=== PATIENT | male | born 1960 | race Caucasian/White ===

== ENCOUNTER → 2022-12-06 09:09 | Outpatient (BNVA) | payer MEDICAID, SELFPAY | PROVIDERS: Visit Provider Physician Assistant | DX: M51.36 Other intervertebral disc degeneration, lumbar region (principal); G89.4 Chronic pain syndrome; M48.062 Spinal stenosis, lumbar region with neurogenic claudication; M47.814 Spondylosis without myelopathy or radiculopathy, thoracic region; M47.816 Spondylosis without myelopathy or radiculopathy, lumbar region | CPT/HCPCS: 72072; 72110; 99204 ==

== ENCOUNTER → 2023-01-10 10:31 | Outpatient (BNVA) | payer MEDICAID, SELFPAY | PROVIDERS: Visit Provider Physician Assistant | DX: M48.062 Spinal stenosis, lumbar region with neurogenic claudication (principal); M51.36 Other intervertebral disc degeneration, lumbar region; G89.4 Chronic pain syndrome | CPT/HCPCS: 99213 ==

== ENCOUNTER 2023-01-16 06:47 | Day surgery (SDC) | payer MEDICAID, SELFPAY ==
[2023-01-14 14:00] VITALS: BMI 32.5
--- NOTE | 2023-01-14 14:13 | P.ANESASSM_ITS ---
Pre-Anesthetic Assessment Height/Weight: Height 1.75 m Weight 99.79 kg Preop Diagnosis: Failed spinal cord stimulator, chronic pain syndrome Operation Date: 01/16/23 11:45 Proposed Procedures p Stimulator Removal:Generator and paddle -97857/23778 M48.062, M51.36, G89.4(Not Applicable) - Duarte Suazo, DO Familial anesthetic complications: None Social No alcohol and No tobacco Exam alert, oriented x 3, clear to auscultation bilaterally and regular rate & rhythm Airway Mallampati: Class II Dentition: full Comments: Comments: a few missing Pulmonary None reported CV/HEM Hypertension and Myocardial Infarction (Was told he'd had a heart attack sometime in the past by a doctor) Able to walk to miles as of last summer, after he'd been informed of a past heart attack by a doctor, but limited now due to pain. He has tolerated surgery since that time as well. None reported Hepatic None reported GI None reported Metabolic None reported Musc/skel Lower Back Pain Neuropsych None reported Anesthetic Plan ASA status: 3 Anesthesia: General Risk of > 500 ml blood loss (7ml/kg in children): No Medications/Allergies Home Medications Medication Instructions Recorded Confirmed Last Taken Type alprazolam 1 mg tablet 1 mg PO QID PRN Anxiety 01/14/23 01/14/23 01/14/23 History atorvastatin 40 mg tablet 40 mg PO DAILY 01/14/23 01/14/23 01/14/23 History lisinopril 20 mg tablet 20 mg PO DAILY 01/14/23 01/14/23 01/14/23 History Allergies Allergy/AdvReac Type Severity Reaction Status Date / Time No Known Allergies Allergy Verified 01/10/23 10:44 [facility] Anesthesia Social History Smoking and tobacco status: never smoked Second hand smoke exposure: No Smoking risk assessment/counseling performed?: No Alcohol intake: never Desire information about alcohol rehabilitation?: No Counseling given: No Desire information about substance/drug rehabilitation?: No Data Anesthesia Cardiac Studies: No Data to Display
--- NOTE | 2023-01-14 14:21 | ECG_ITS ---
[facility] Test Date: 2023-01-14 Pat Name: Petr Price Department: Room: Gender: Male Automatic Mounter: : 1960 Requested By: Viv Pond Order Number: [id number] Vidales MD: Iker Pena M.D. Measurements Intervals [place] Rate: 57 P: 16 OK: 112 QRS: -39 QRSD: 121 T: 125 QT: 422 QTc: 412 Interpretive Statements SINUS BRADYCARDIA WITH SHORT OK INTERVAL VENTRICULAR PREEXCITATION No previous ECG available for comparison Electronically Signed On 01-14-2023 16:02:51 CDT by Iker Pena M.D. [id number]
[2023-01-16] VITALS (14 sets, daily range): BP systolic 115–152; BP diastolic 68–96; PULSE 53–84; RESP 9–21; TEMP 36.1–36.6; O2SAT 92–100
--- NOTE | 2023-01-16 07:31 | P.ANESUD_ITS ---
Pre-Anesthetic Update Pre-Anesthetic Assessment: Date of Surgery/Procedure: 01/16/23 Preop Noemi gnosis: Failed spinal cord stimulator, chronic pain syndrome Proposed Procedure: Operation Date: 01/16/23 08:35 Proposed Procedures p Stimulator Removal:Generator and paddle -94691/45799 M48.062, M51.36, G89.4(Not Applicable) - Duarte Suazo, DO Any changes to Pre-Anesthetic Assessment?: No Last Intake: Intake Last Liquid Date 01/15/23 Last Liquid Time 18:30 Last Solid Date 01/15/23 Last Solid Time 18:30 Vitals: Temperature 97.8 F 01/16/23 07:18 Temperature Source Temporal Artery S can 01/16/23 07:18 Pulse Rate 59 L 01/16/23 07:18 Respiratory Rate 18 01/16/23 07:18 Blood Pressure 131/84 01/16/23 07:18 Blood Pressure Kaila n 99 01/16/23 07:18 Pulse Oximetry 95 01/16/23 07:18 Oxygen Delivery Me thod 01/16/23 07:18 Exam: Pre-Anes Outpt Exam: alert, oriented x 3, clear to auscultation bilaterally and regular rate & rhythm Cardiac Studies: No Data to Display
[2023-01-16] MEDS: sodium chloride 0.9% 1,000 ML 30 ML IV (07:33)
--- NOTE | 2023-01-16 08:50 | W.PM.OPSUD ---
Surgery/Procedure H&P Update DATE OF PROCEDURE: January 16, 2023 DATE H&P PERFORMED: 01/10/23 H&P UPDATE INFORMATION: I have reviewed H&P completed within last 30 days, I have examined patient prior to procedure and No changes to prior documentation PREOP DIAGNOSIS: Failed spinal cord stimulator, chronic pain syndrome PLANNED PROCEDURE: Operation Date: 01/16/23 08:35 Proposed Procedures p Stimulator Removal:Generator and paddle -[id number] M48.062, M51.36, G89.4(Not Applicable) - Duarte Suazo DO
[2023-01-16] MEDS: ceFAZolin 2,000 MG in sodium chloride 0.9% (plus) 50 ML 100 MG IV (09:31)
[2023-01-16] MEDS: lidocaine-epi 1% 20 mL INJ INJECTION (09:55)
[2023-01-16] MEDS: vancomycin 1,000 MG SDV 1000 MG XX (10:05)
--- NOTE | 2023-01-16 10:17 | XR_ITS ---
WS: [id number] EXAMINATION: XR lumbar spine 1V [id number] L-SPINE : 1 views REASON FOR EXAM: C-arm fluoroscopy COMPARISON: None available. ORDER DATE: 01/16/2023 10:22 AM FINDINGS: C-arm fluoroscopy provided not for diagnostic purposes but for assistance with epidural lead placemen t XR/XR lumbar spine 1V [id number] IMPRESSION: Total fluoroscopy time 4.8 seconds
--- NOTE | 2023-01-16 10:25 | P.OP_ITS ---
Operative Report Date of procedure: January 16, 2023 Pre-op diagnosis: Preop Diagnosis Failed spinal cord stimulator, chronic pain syndrome Post-op diagnosis: same Procedure done: 1. removal of battery generator for Spinal cord stimulator 2. removal of percutaneous leads of neurostimulator Surgeon: Duarte Suazo Flash Drier Operator: Lonnie Bonds Flash Drier Operator: The ophthalmology surgical technician, Lonnie Bonds, PAC was needed for his expertise with neurostimulator's. He was important and necessary throughout the procedure to complete in a safe and timely manner. He assisted with patient positioning prepping and draping tissue retraction suctioning of the operative field protection of the dural sac and tissue closure Estimated blood loss (mL): 5 Procedure: 1. removal of battery generator for Spinal cord stimulator 2. removal of percutaneous leads of neurostimulator Patient brought suite after undergoing anesthesia was placed in prone position. All areas impingement well-padded patient prepped draped also fashion. Skin incision made over the battery on the right side of the flank. The skin incision made the Bovie then using bleeding. The battery was identified batteries removed wiring was removed from the soft tissue. And the battery was then removed. Wires were cut. Next attention was brought to the neurostimulator lead. The wires were sewn in over the spinous process. Once the structures were identified these were removed and then the wires were then pulled slowly once the wires were removed a AP x-ray ensure that the leads were completely removed from the spinal column and the battery was complete removed. Wound was then irrigated and closed with Vicryl and Monocryl suture. Sterile dressings applied patient transferred to the PACU in stable addition.
[2023-01-16] MEDS: fentaNYL 50 mcg/mL INJ 2mL IVP ×2 (10:33→10:44)
--- NOTE | 2023-01-16 10:37 | SUR.PHASEI ---
patient brought into pacu at 1029. patient able to answer questions but very drowsy still. dressing dry and in place, patient on room air with sat at 95%.
[2023-01-16] MEDS: HYDROmorphone 1 mg/mL INJ 1 mL 0.5 MG IVP (10:59)
--- NOTE | 2023-01-16 11:01 | SUR.PHASEI ---
patient more awake, still drowsy. states his pain is in middle of his back. room air sat at 94%. patient medicated per orders
--- NOTE | 2023-01-16 11:12 | SUR.PHASEI ---
report given to felipe. will take patient to phase 2 at 1115. patient still states pain in back, he is visibly more relaxed, not holding himself to the side off of his back anymore. room air sat dropped to 88, placed on 2L O2 NC with sats returning to 97%. patient appears comfortable.
[2023-01-16] MEDS: HYDROcodone-acetaminophen 5-325 mg Tablet 1 TAB PO (11:26)
--- NOTE | 2023-01-16 14:53 | ANE.PACU2 ---
Inpatient post-anesthesia follow up: Airway intact: Yes Vital signs: Temperature 97.2 F Pulse Rate 53 Respiratory Rate 18 Blood Pressure 115/74 Pulse Oximetry 100 Oxygen Delivery Me thod Room Air Oxygen Flow Rate 2 Fraction of Inspir ed Oxygen Hydration adequate: Yes Nausea and vomiting: No Pain level: 1 Mental status: Baseline
== END 2023-01-16 12:10 | disposition home or self-care (01) ==
PROVIDERS: PCP Orthopaedic Surgery; Visit Provider Orthopaedic Surgery
PROC: (CPT 63662; principal; 2023-01-16 08:25)
DX: T85.193A Other mechanical complication of implanted electronic neurostimulator, generator, initial encounter (principal); Y83.8 Other surgical procedures as the cause of abnormal reaction of the patient, or of later complication, without mention of misadventure at the time of the procedure; G89.4 Chronic pain syndrome; I10 Essential (primary) hypertension; I25.2 Old myocardial infarction
CPT/HCPCS: 63662; 63688; 72020; 76000; 93005; J0131; J0690; J1100; J1170; J2250; J2405; J2704; J3010; J3370; J3490; J7030

== ENCOUNTER → 2023-01-31 14:54 | Outpatient (BNVA) | payer MEDICAID, SELFPAY | PROVIDERS: PCP Orthopaedic Surgery; Visit Provider Physician Assistant | DX: Z98.890 Other specified postprocedural states (principal); M48.062 Spinal stenosis, lumbar region with neurogenic claudication | CPT/HCPCS: 99024 ==

== ENCOUNTER 2023-02-20 08:22 | Outpatient (CLI) | payer MEDICAID, SELFPAY ==
--- NOTE | 2023-02-20 08:45 | MR_ITS ---
WS: [id number] MRI LUMBAR SPINE NONCONTRAST HISTORY: Bilateral leg pain. COMPARISON: None available. TECHNIQUE: Sagittal and axial multisequence imaging is submitted. Disc osteophyte at C3-4 contacting the cervical cord. Mild stenosis. Normal lumbar alignment with no compression fractures or marrow edema. Disc desiccation throughout with osteophytic ridging. Conus terminates normally at L1. L1-L2: Mild facet arthritis. No stenosis. L2-L3: Mild bilateral facet joint arthritis and ligamentum flavum hypertrophy. No high-grade stenosis . L3-L4: Mild annular disc bulging with moderate ligamentum flavum and facet arthritis. There is very m inimal narrowing of the subarticular recesses and mild foraminal stenosis. No high-grade stenosis. L4-L5: Moderate diffuse annular disc bulging with osteophytic ridging. Severe facet joint arthritis. Facet joints are narrowed with hypertrophic bone and soft tissue encroaching into the thecal sac and foramina. Mild central with moderate bilateral foraminal stenosis. L5-S1: Mild annular disc bulging with osteophytic ridging. Small central disc protrusion. Marked face t joint arthritis. Posterior laminectomy defect is suspected at the L5 level. Thecal sac is slightly patulous. Moderate bilateral foraminal stenosis. Partially visualized cystic mass LEFT kidney. Mild atherosclerosis aorta. There is a small cystic collection in the paravertebral soft tissues at the L2 level. This is probabl y the site of the recent epidural lead removal. MR/MR lumbar spine wo con* [id number] IMPRESSION: 1. Advanced facet joint arthritis at L4-5 and L5-S1. 2. Mild central with moderate bilateral foraminal stenosis at L4-5. 3. Moderate bilateral foraminal stenosis at L5-S1 with a small central disc pr otrusion. 4. No fracture.
== END 2023-02-20 08:23 | disposition home or self-care (01) ==
LOC: RAD 08:26
PROVIDERS: PCP Orthopaedic Surgery; Visit Provider Physician Assistant
DX: M48.062 Spinal stenosis, lumbar region with neurogenic claudication (principal); M47.817 Spondylosis without myelopathy or radiculopathy, lumbosacral region; M51.27 Other intervertebral disc displacement, lumbosacral region
CPT/HCPCS: 72148; 99024

== ENCOUNTER → 2023-03-12 13:45 | Outpatient (BNVA) | payer MEDICAID, SELFPAY | PROVIDERS: PCP Orthopaedic Surgery; Visit Provider Physician Assistant | DX: M48.062 Spinal stenosis, lumbar region with neurogenic claudication (principal); M47.816 Spondylosis without myelopathy or radiculopathy, lumbar region; G89.4 Chronic pain syndrome | CPT/HCPCS: 99213 ==

== ENCOUNTER → 2023-04-10 09:51 | Outpatient (BNVA) | payer MEDICAID, SELFPAY | PROVIDERS: PCP Orthopaedic Surgery; Visit Provider Anesthesiology Pain Medicine | DX: M48.062 Spinal stenosis, lumbar region with neurogenic claudication (principal); M47.816 Spondylosis without myelopathy or radiculopathy, lumbar region; M48.061 Spinal stenosis, lumbar region without neurogenic claudication; M51.36 Other intervertebral disc degeneration, lumbar region | CPT/HCPCS: 99204 ==

== ENCOUNTER → 2023-05-08 13:46 | Outpatient (BNVA) | payer MEDICAID, SELFPAY | PROVIDERS: PCP Orthopaedic Surgery; Visit Provider Anesthesiology Pain Medicine | DX: M47.816 Spondylosis without myelopathy or radiculopathy, lumbar region (principal) | CPT/HCPCS: 64493; 64494; 64495; J3490 ==

== ENCOUNTER → 2023-05-21 08:46 | Outpatient (BNVA) | payer MEDICAID, SELFPAY | PROVIDERS: PCP Orthopaedic Surgery; Visit Provider Anesthesiology Pain Medicine | DX: M48.062 Spinal stenosis, lumbar region with neurogenic claudication (principal); M47.816 Spondylosis without myelopathy or radiculopathy, lumbar region; M48.061 Spinal stenosis, lumbar region without neurogenic claudication; M51.36 Other intervertebral disc degeneration, lumbar region | CPT/HCPCS: 99213 ==

== ENCOUNTER → 2023-06-13 10:56 | Outpatient (BNVA) | payer MEDICAID, SELFPAY | PROVIDERS: PCP Orthopaedic Surgery; Visit Provider Physician Assistant | DX: Z01.818 Encounter for other preprocedural examination (principal); G89.4 Chronic pain syndrome; M47.816 Spondylosis without myelopathy or radiculopathy, lumbar region; M51.36 Other intervertebral disc degeneration, lumbar region | CPT/HCPCS: 80053; 81003; 85025; 99213 ==

== ENCOUNTER 2023-07-17 14:41 | Inpatient (IN) | payer MEDICAID, SELFPAY ==
[2023-07-17] VITALS (24 sets, daily range): BP systolic 109–162; BP diastolic 80–108; PULSE 65–97; RESP 14–20; TEMP 36.1–36.6; O2SAT 90–98
--- NOTE | 2023-07-17 | XR_ITS ---
WS: [id number] XR lumbar spine 1V [id number] REASON FOR EXAM: L4-PELVIC FUSION FINDINGS: Preliminary intraoperative imaging for S1-2 L2 decompression and fusion. Intraoperative examination with pelvic and pedicle screw placements S1, L5, and L4. IMPRESSION: Intraoperative images as above.
[2023-07-17] MEDS: sodium chloride 0.9% 1,000 ML 30 ML IV (08:38)
--- NOTE | 2023-07-17 08:42 | W.PM.OPSUD ---
Surgery/Procedure H&P Update DATE OF PROCEDURE: July 17, 2023 DATE H&P PERFORMED: 07/03/23 H&P UPDATE INFORMATION: I have reviewed H&P completed within last 30 days, I have examined patient prior to procedure and No changes to prior documentation PREOP DIAGNOSIS: DDD lumbar, Lumbar stenosis PLANNED PROCEDURE: Operation Date: 07/17/23 08:50 Proposed Procedures p Posterior Lumbar Interbody Fusion PLIF l4-l5, L5-S1(Not Applicable) - Duarte Suazo DO s Lumbopelvic Fixation(Not Applicable) - Duarte Suazo DO
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
[2023-07-17] MEDS: fentaNYL 50 mcg/mL INJ 2mL IVP ×2 (08:46→12:30)
[2023-07-17] MEDS: ceFAZolin 2,000 MG in sodium chloride 0.9% (plus) 50 ML 100 MG IV ×2 (09:19→16:24)
[2023-07-17] MEDS: vancomycin 1,000 MG SDV 1000 MG XX (11:15)
[2023-07-17] MEDS: lidocaine-epi 1% 20 mL INJ INJECTION (11:15)
[2023-07-17] MEDS: heparin, porcine 1,000 unit/mL INJ 10 mL 10000 UNIT IRRIGATION (11:17)
--- NOTE | 2023-07-17 11:59 | P.OP_ITS ---
Operative Report Date of procedure: July 17, 2023 Pre-op diagnosis: Lumbar stenosis with neurogenic claudication Post-op diagnosis: same Procedure done: 1. L4 to pelvis posterior spine fusion 2. L4-S1 posterior instrumentation 3. Lumbopelvic fixation 4. Open right sacral iliac fusion 5. Open Left sacral iliac fusion 6. Bone marrow aspirate right iliac crest 7. use of computer navigation / stereotactic for spine Surgeon: Duarte Suazo DO Blind Aide: Lonnie Bonds Blind Aide: The surgical appliances salesperson, Lonnie Bonds, [employer] was needed for his expertise with spine. He was important and necessary throughout the procedure to complete in a safe and timely manner. He assisted with patient positioning prepping and draping tissue retraction suctioning of the operative field protection of the dural sac and tissue closure Estimated blood loss (mL): 250 Procedure: 1. L4 to pelvis posterior spine fusion 2. L4-S1 posterior instrumentation 3. Lumbopelvic fixation 4. Open right sacral iliac fusion 5. Open Left sacral iliac fusion 6. Bone marrow aspirate right iliac crest 7. use of computer navigation / stereotactic for spine Patient is brought to the operative suite. After undergoing anesthesia, the patient had neuro monitoring attached. Patient was then placed in the prone position on the Lion table. All areas of impingement were well-padded. Patient was then prepped and draped in the normal sterile fashion. Skin incision was then made L4 to sacrum. Subperiosteal dissection was made out to the transverse processes of L4 and L5 and sacral ala bilaterally. Next attention was brought to obtain the bone marrow aspirate. This was done by using the regenerative bone marrow aspiration kit. 20 cc of bone marrow aspirate were taken from the right iliac crest. This was later used with the osteo amp bone graft. Next tension was brought to placing the fiducial for the computer navigation. 2 pins were placed into the right iliac crest. The fiducial was attached. The C- arm was brought in and information from serum was then linked to the computer used for placing the screws. The case. Next attention was brought to placing the pedicle screws. This was done by using the gearshift probe. The probe was used to identify the pedicle. Then the pedicle feeler was used followed by placement of screw. This was done at L4 bilaterally, L5 bilaterally and S1 bilaterally. Next tension was brought to placing the iliac screws. This was done using the sacral ala iliac technique. The gearshift probe linked to computer navigation was then placed through the sacral ala into the sacroiliac joint into the iliac crest. Next the pedicle feeler was used followed by the computer navigated tap. And then the screw was passed a 90 mm screw was placed on the right side and a 80 mm screw was placed on the left side. Both the screws were 9.5 mm in diameter. Next tension was brought to performing the open and sacral iliac fusion. This was done by again using the gearshift probe linked to computer navigation. Followed by pedicle feeler followed by placing a wire and then the drill drilled over the wire and then bone graft was packed into the sacroiliac joint and into the drill hole. And the sacroiliac screw was then placed. This technique was done on both the right and left side. Next attention was brought to attaching the rods. Rods were attached from L4 down to S1 and then to the iliac crest completing the lumbopelvic fixation. The caps were then tightened. This was done bilaterally. Next the wound was irrigated. And then the transverse processes of L4-L5 and sacral ala were decorticated using high-speed bur. And the bone graft was packed into the lateral gutters. Next the deep drain was placed and black powder was placed and wound was closed in layered fashion with 0 Vicryl 2-0 Vicryl and Monocryl suture. Sterile dressings were applied patient was transferred to the PACU in stable condition.
[2023-07-17] MEDS: HYDROmorphone 1 mg/mL INJ 1 mL 0.5 MG IVP (12:57)
--- NOTE | 2023-07-17 14:32 | SUR.PHASEII ---
seo and hemovac patent. ROM and sensation in all 4 extremities. Report called to Abbey SIERRA. Pt transported to room 261 via hospital bed.
[2023-07-17] MEDS: HYDROcodone-acetaminophen 5-325 mg Tablet PO ×2 (15:14→21:14)
[2023-07-17] MEDS: ketorolac 30 mg/mL INJ IVP (16:23)
[2023-07-17] MEDS: docusate sodium 100 mg Capsule PO (16:24)
--- NOTE | 2023-07-17 18:17 | ANE.PACU2 ---
Inpatient post-anesthesia follow up: Airway intact: Yes Vital signs: Temperature 97.9 F Pulse Rate 78 Respiratory Rate 18 Blood Pressure 150/90 Pulse Oximetry 96 Oxygen Delivery Me thod Nasal Cannula Oxygen Flow Rate 2 Fraction of Inspir ed Oxygen Hydration adequate: Yes Nausea and vomiting: No Pain level: 3 Mental status: Baseline
[2023-07-17] MEDS: nortriptyline 10 mg Capsule PO (21:13)
[2023-07-17] MEDS: lactated ringers 1,000 ML 90 ML IV (23:06)
[2023-07-18] VITALS: BP 133/84; PULSE 81; RESP 17; TEMP 36.5; O2SAT 92
[2023-07-18] MEDS: ceFAZolin 2,000 MG in sodium chloride 0.9% (plus) 50 ML 100 MG IV ×2 (01:30→09:11)
[2023-07-18 04:07] VITALS: BP 128/88; PULSE 87; RESP 18; TEMP 36.9; O2SAT 93
[2023-07-18] MEDS: HYDROcodone-acetaminophen 5-325 mg Tablet PO (05:58)
--- NOTE | 2023-07-18 06:54 | PM.PN ---
Subjective Subjective: POD 1 Patient feeling mild back pain but much better. Denies shortness of breath, chest pain, headaches. Vitals/I&O/Wt Last Vital Signs Temp 98.4 F 07/18/23 04:07 Pulse 87 07/18/23 04:07 Resp 18 07/18/23 04:07 BP 128/88 07/18/23 04:07 Pulse Ox 93 07/18/23 04:07 O2 Del Method Nasal Cannula 07/18/23 04:07 O2 Flow Rate 2 07/18/23 04:07 07/17/23 07/17/23 07/18/23 14:59 22:59 06:59 Intake Total 2150 / 2150 590 / 2740 50 / 2790 Output Total 650 / 650 1130 / 1780 1170 / 2950 Balance 1500 / 1500 -540 / 960 -1120 / -160 Physical Exam Narrative: Patient presents alert and oriented x3 with a good general appearance normal mood and affect. Normal coordination normal stability. Mild tenderness around the incisional site with the incision appear to be clean and dry with Hemovac intact. No signs of erythema or drainage. No signs of infection. Patient denies any fevers or chills. 5/5 motor strength both lower extremities with negative straight leg raise bilaterally. Calves are supple no medial thigh tenderness. Pulses are 2+ at the dorsalis pedis and posterior tibial region. Good capillary refill throughout normal sensation light touch both lower extremities. Urinary Catheter Management: Coates: Cath Placed During This Visit: yes Reason for Continuing Indwelling Catheter: Perioperative Use in Selected Surgeries Urinary Catheter Date of Insertion: 07/17/23 Urinary Catheter Time of Insertion: 09:30 A&P Assessment and plan (1) Status post lumbar spinal fusion: We will discontinue Coates catheter and Hemovac drain. Physical therapy to mobilize. Discharge home later this morning. Continue incentive spirometry at home for pulmonary toilet. No bending lifting or twisting continue walking program with a walker. We will see him back in the office in 1 week's time for a wound check. Continue abdominal binder with compressive dressing over the lumbar incisional site. Ice to the lumbar spine. Attestations Medical Necessity Statement*: DC home later this morning Coding Level of Care Code Acute Code for Chg Fwd Diagnoses Status post lumbar spinal fusion Z98.1
--- NOTE | 2023-07-18 07:45 | PC.PHAR ---
PT HAS DISCHARGE MEDS ON BOARD. MED REC WILL WIPE OUT NEW RX
[2023-07-18 08:00] VITALS: BP 146/91; PULSE 93; RESP 17; TEMP 36.8; O2SAT 95
[2023-07-18] MEDS: ALPRAZolam 0.5 mg Tablet 1 MG PO (08:58)
[2023-07-18] MEDS: docusate sodium 100 mg Capsule PO (09:11)
[2023-07-18] MEDS: lisinopril 20 mg Tablet PO (09:11)
[2023-07-18] MEDS: atorvastatin 40 mg Tablet PO (09:11)
[2023-07-18 09:24] VITALS: PULSE 81; RESP 18; O2SAT 95
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
== END 2023-07-18 11:11 | disposition home or self-care (01) | DRG 455 ==
LOC: MEDSURG 14:42
PROVIDERS: Admitting Provider Orthopaedic Surgery; PCP Family Medicine; Visit Provider Orthopaedic Surgery
PROC: 0SG807Z Fusion of Left Sacroiliac Joint with Autologous Tissue Substitute, Open Approach (ICD-10-PCS; CPT 22612; principal; 2023-07-17 08:40)
PROC: 0SG807Z Fusion of Left Sacroiliac Joint with Autologous Tissue Substitute, Open Approach (ICD-10-PCS; 2023-07-17 08:40)
DX: M48.062 Spinal stenosis, lumbar region with neurogenic claudication (principal); G89.4 Chronic pain syndrome; M51.36 Other intervertebral disc degeneration, lumbar region; M47.896 Other spondylosis, lumbar region
CPT/HCPCS: 36415; 51702; 72020; 76000; 86850; 86900; 97116; 97161; C1713; C9359; J0131; J0330; J0690; J1100; J1170; J1644; J1885; J2405; J2704; J3010; J3370; J3490; J7030; J7120; P9045

== ENCOUNTER → 2023-07-30 11:26 | Outpatient (BNVA) | payer MEDICAID, SELFPAY | PROVIDERS: PCP Family Medicine; Visit Provider Orthopaedic Surgery | DX: Z47.89 Encounter for other orthopedic aftercare (principal); Z98.1 Arthrodesis status | CPT/HCPCS: 99024 ==

== ENCOUNTER → 2023-08-27 09:06 | Outpatient (BNVA) | payer MEDICAID, SELFPAY | PROVIDERS: PCP Family Medicine; Visit Provider Orthopaedic Surgery | DX: Z98.1 Arthrodesis status (principal); Z47.89 Encounter for other orthopedic aftercare | CPT/HCPCS: 72100; 99024 ==

== ENCOUNTER → 2023-11-12 09:32 | Outpatient (BNVA) | payer MEDICAID, SELFPAY | PROVIDERS: PCP Family Medicine; Visit Provider Orthopaedic Surgery | DX: Z98.1 Arthrodesis status (principal); Z47.89 Encounter for other orthopedic aftercare | CPT/HCPCS: 99213 ==

== ENCOUNTER → 2023-12-19 12:51 | Outpatient (BNVA) | payer MEDICAID, SELFPAY | PROVIDERS: PCP Family Medicine; Referring Provider Family Medicine; Visit Provider Surgery | DX: Z12.11 Encounter for screening for malignant neoplasm of colon (principal); K21.9 Gastro-esophageal reflux disease without esophagitis; Z86.010 Personal history of colon polyps | CPT/HCPCS: 99204 ==

== ENCOUNTER 2024-01-22 10:33 | Day surgery (SDC) | payer MEDICAID, SELFPAY ==
[2024-01-22] VITALS (7 sets, daily range): BP systolic 116–155; BP diastolic 83–105; PULSE 56–95; RESP 14–18; TEMP 36.2–36.6; O2SAT 91–97; BMI 32.2
[2024-01-22] MEDS: sodium chloride 0.9% 1,000 ML 30 ML IV (11:16)
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
--- NOTE | 2024-01-22 13:35 | ANE.PACU2 ---
Inpatient post-anesthesia follow up: Airway intact: Yes Vital signs: Temperature 97.1 F Pulse Rate 78 Respiratory Rate 18 Blood Pressure 116/97 Pulse Oximetry 97 Oxygen Delivery Me thod Room Air Oxygen Flow Rate Fraction of Inspir ed Oxygen Hydration adequate: Yes Nausea and vomiting: No Pain level: 1 Mental status: Baseline
== END 2024-01-22 13:37 | disposition home or self-care (01) ==
PROVIDERS: PCP Family Medicine; Visit Provider Surgery
PROC: 0DJ08ZZ Inspection of Upper Intestinal Tract, Via Natural or Artificial Opening Endoscopic (ICD-10-PCS; CPT 43235; principal; 2024-01-22 11:45)
PROC: 0DJD8ZZ Inspection of Lower Intestinal Tract, Via Natural or Artificial Opening Endoscopic (ICD-10-PCS; CPT 45378; 2024-01-22 11:45)
DX: Z12.11 Encounter for screening for malignant neoplasm of colon (principal); D12.2 Benign neoplasm of ascending colon; K21.9 Gastro-esophageal reflux disease without esophagitis; Z86.010 Personal history of colon polyps; K44.9 Diaphragmatic hernia without obstruction or gangrene; E78.5 Hyperlipidemia, unspecified; E66.01 Morbid (severe) obesity due to excess calories; Z68.28 Body mass index [BMI] 28.0-28.9, adult
CPT/HCPCS: 43239; 45385; 88305; 88342; J2250; J2704; J3490; J7030

== ENCOUNTER → 2024-03-03 12:49 | Outpatient (BNVA) | payer MEDICAID, SELFPAY | PROVIDERS: PCP Family Medicine; Visit Provider Orthopaedic Surgery | DX: Z98.1 Arthrodesis status (principal) | CPT/HCPCS: 72100; 99213 ==

== ENCOUNTER → 2024-09-08 14:38 | Outpatient (BNVA) | payer MEDICAID, SELFPAY | PROVIDERS: PCP Family Medicine; Visit Provider Orthopaedic Surgery | DX: Z98.1 Arthrodesis status (principal) | CPT/HCPCS: 72100; 99214 ==